=== PATIENT | male | born 1975 | race Two or more races ===

== ENCOUNTER 2016-06-26 13:20 | Emergency (ER) | payer OTHER ==
[~2016-06-26] VITALS: Ht 149.9 cm; Wt 77.1 kg
[2016-06-26 15:45] VITALS: BP 141/85
[2016-06-26] MEDS ORDERED: PHENYLEPHRINE 1% NASAL SPRAY 15ML BOTTLE. NS ONE (16:15)
[2016-06-26] MEDS ORDERED: FLUTICASONE 50MCG/NASAL SPRAY 16GM BOTTLE. NS SCH (16:40)
--- NOTE | 2016-06-26 20:10 | ED.ADGEN ---
Past Medical History Past Medical History: Diabetes-Type II, Hypertension Past Surgical History: No Surgical History Alcohol Use: None Drug Use: Methamphetamine, Opiates Adult General Chief Complaint Chief Complaint: NOSEBLEED HPI HPI Patient is a 41 year old man, history of type 2 diabetes mellitus, hypertension , who presents to the emergency department with complaint of epistaxis. Patient states that he first noted bleeding from his right [place]aj[place] this morning, states it is "dripping", on and off, since this morning. He has had nosebleeds he states adamantly the past 2 years. Denies any seasonal allergy symptoms, runny nose, cough, sore throat, fever, chills, pain, trauma. No other bleeding or bruising. At this time the bleeding has stopped. States it was only occurring out of the right [place]. Correctional facility officers present. Review of Systems Review of Systems Constitutional: Denies fever or chills. [] Eyes: Denies change in visual acuity. [] HENT: Denies nasal congestion or sore throat. [] Epistaxis. Respiratory: Denies cough or shortness of breath. [] Cardiovascular: Denies chest pain or edema. [] GI: Denies abdominal pain, nausea, vomiting, bloody stools or diarrhea. [] : Denies dysuria. [] Musculoskeletal: Denies back pain or joint pain. [] Integument: Denies rash. [] Neurologic: Denies headache, focal weakness or sensory changes. [] Endocrine: Denies polyuria or polydipsia. [] Lymphatic: Denies swollen glands. [] Psychiatric: Denies depression or anxiety. [] Current Medications Current Medications Current Medications Medications (Trade) Dose Ordered Sig/Yue Start Time Stop Time Status Last Admin Dose Admin Fluticasone Propionate (Flonase) 2 spray DAILY 06/26/16 16:40 06/26/16 17:38 DC 06/26/16 17:16 2 SPRAY Phenylephrine HCl (Power-Synephrine 1% Nasal) 2 spray 1X ONCE 06/26/16 16:15 06/26/16 16:16 DC 06/26/16 17:15 2 SPRAY Allergies Allergies Allergies Coded Allergies Type Severity Reaction Last Updated Verified No Known Drug Allergies 04/20/16 No Physical Exam Physical Exam Constitutional: Well developed, well nourished, no acute distress, non-toxic appearance. [] HENT: Normocephalic, atraumatic, bilateral external ears normal, oropharynx moist, no oral exudates, or illnesses normal, patient noted to have mild turbinate swelling and mucosal irritation in the right Faj[place], no active bleeding noted, left naris unremarkable. Eyes: PERRLA, EOMI, conjunctiva normal, no discharge. [] Neck: Normal range of motion, no tenderness, supple, no stridor. [] Cardiovascular:Heart rate regular rhythm, no murmur , S1, S2, rubs or gallops. [ ] Lungs & Thorax: Bilateral breath sounds clear to auscultation [] Abdomen: Bowel sounds normal, soft, no tenderness, no masses, no pulsatile masses. [] Skin: Warm, dry, no erythema, no rash. [] Back: No tenderness, no CVA tenderness. [] Extremities: No tenderness, no cyanosis, no clubbing, ROM intact, no edema. [] Neurologic: Alert and oriented X 3, normal motor function, normal sensory function, no focal deficits noted. [] Psychologic: Affect normal, judgement normal, mood normal. [] Current Patient Data Vital Signs Vital Signs Date Time Temp Pulse Resp B/P Pulse Ox O2 Delivery O2 Flow Rate FiO2 06/26/16 15:45 98.8 65 16 141/85 99 Room Air 98.8 EKG EKG Not indicated. [] Radiology/Procedures Radiology/Procedures Not indicated. [] Course & Med Decision Making Course & Med Decision Making Pertinent Labs and Imaging studies reviewed. (See chart for details) Patient with evidence mucosal irritation, no evidence of trauma, or denuded vessels. No bleeding at this time. Patient's blood pressure is 130s over 70s, heart rate is in the 80s. I did discuss with patient use of Power-Synephrine, 4 bleeding, patient was given 2 sprays in the ED without resumption of bleeding after observation, was also given Flonase, to use daily to help reduce nasal inflammation. We discussed concerning symptoms proper return, patient was encouraged to follow up with ENT as he has had recurrent nosebleeds for the past 2 years, was given contact information for Dr. Ramirez of otolaryngology. Patient was discharged in the company of correctional facility officers without issue. Dragon Disclaimer Dragon Disclaimer This electronic medical record was generated, in whole or in part, using a voice recognition dictation system. Departure Impression: Primary Impression: Epistaxis Disposition: 01 HOME, SELF-CARE Condition: IMPROVED JAREK CLINE DO Jun 26, 2016 20:10
== END 2016-06-26 17:38 | disposition home or self-care (01) ==
LOC: ER 13:20 → EEVIPCON 13:20 → ER 17:38
DX: R04.0 Epistaxis (principal); I10 Essential (primary) hypertension; E11.9 Type 2 diabetes mellitus without complications; F15.10 Other stimulant abuse, uncomplicated; F11.10 Opioid abuse, uncomplicated
CPT/HCPCS: 99283

== ENCOUNTER 2016-07-01 14:41 | Emergency (ER) | payer SELFPAY ==
[~2016-07-01] VITALS: Ht 149.9 cm; Wt 78.9 kg
[2016-07-01 15:44] LABS: BARBITURATES NEG (NEG); BENZODIAZEPINES NEG (NEG); CANNABINOIDS NEG (NEG); COCAINE NEG (NEG); METHADONE POS (NEG); OPIATES NEG (NEG); PHENCYCLIDINE NEG (NEG)
[2016-07-01 15:54] LABS: ETHANOL, URINE NEG (NEG)
[2016-07-01] MEDS ORDERED: IV NORMAL SALINE 1000ML BAG 1,000 ML IV ONE ×2 (16:00→16:45)
[2016-07-01 16:14] LABS: BASO % 0 % (0-3); EOS % 0 % (0-3); HEMATOCRIT 37.1 % (39.0-53.0); HEMOGLOBIN 12.3 g/dL (13.0-17.5); LYMPH # 2.7 x10^3/uL (1.0-4.8); LYMPH % 24 % (24-48); MEAN CORPUSCULAR HEMOGLOBIN 30 pg (25-35); MEAN CORPUSCULAR HGB CONC 33 g/dL (31-37); MEAN CORPUSCULAR VOLUME 89 fL (79-100); MONO % 7 % (0-9); NEUT % 69 % (31-73); PLATELET COUNT 316 x10^3/uL (140-400); RED BLOOD COUNT 4.17 x10^6/uL (4.30-5.70); RED CELL DISTRIBUTION WIDTH 13.2 % (11.5-14.5); WHITE BLOOD COUNT 11.3 x10^3/uL (4.0-11.0)
[2016-07-01] MEDS ORDERED: LORAZEPAM 2 MG/ML VIAL IV ONE (16:30)
[2016-07-01 16:39] LABS: CALCIUM 9.3 mg/dL (8.5-10.1); CREATININE 0.8 mg/dL (0.7-1.3); GFR 107.1; POTASSIUM 3.1 mmol/L (3.5-5.1)
[2016-07-01 16:52] LABS: ETHANOL < 10 mg/dL (0-10)
[2016-07-01 17:25] VITALS: BP 193/82
[2016-07-01] MEDS ORDERED: KETOROLAC TROMETHAMINE 30 MG/ML SYRINGE. IV ONE (18:45)
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
== END 2016-07-01 19:16 | disposition home or self-care (01) ==
LOC: ER 14:41
DX: R25.1 Tremor, unspecified (principal); I10 Essential (primary) hypertension; E11.9 Type 2 diabetes mellitus without complications; F15.10 Other stimulant abuse, uncomplicated; F11.10 Opioid abuse, uncomplicated
CPT/HCPCS: 36415; 80048; 82550; 85027; 96361; 96374; 96375; 99285; G0480; G0481; G6038; J1885; J2060; J7030; 80196